=== PATIENT | male | born 1990 | race Caucasian/White ===

== ENCOUNTER → 2017-01-27 | Outpatient (CLI) | payer OTHER | LOC: FIMAGING 15:57 | PROVIDERS: ATTEND Family Medicine | DX: J40 Bronchitis, not specified as acute or chronic (principal); F17.200 Nicotine dependence, unspecified, uncomplicated ==

== ENCOUNTER 2018-11-25 13:30 | Emergency (ER) | payer MEDICAID, OTHER ==
[2018-11-25 13:42] VITALS: BP 133/77
[2018-11-25] MEDS ORDERED: FLUORESCEIN SODIUM 1 MG STRIP OP ONE (13:46)
[2018-11-25] MEDS ORDERED: PROPARACAINE 0.5% 15 ML OPHT DROP ONE (13:46)
--- NOTE | 2018-11-25 13:59 | EDPHY ---
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 This happened on Tuesday last week still present. Left eye upper medial. Says it does not affect his vision. REVIEW OF SYSTEMS: No fever, no discharge from the eye PAST MEDICAL HISTORY: Negative Social history: Here with mom General Appearance: Alert, no distress. Visual acuity: noted from nursing notes. 20/25 right, 20/50 left, 20/20 both Lids and Lashes: No edema, no stye, no erythema. Conjunctivae: Not injected, no exudate. Sclera: No subconjunctival hemorrhage, no icterus. Pupils: Equal and round, normally reactive. Corneas: The left examined with fluoroscein, upper left and medial 1 mm foreign body on the surface of the cornea and surrounding uptake seen with slitlamp.Negative Toshia test with fluoroscein. Anterior chamber: normal, no hyphema or hypopyon. External: No proptosis, no periorbital swelling or redness or tenderness. EOMI. Emergency Department course/MDM: Fluoroscein and Alcaine drops instilled which resolved his symptoms. An eye spud was used under direct vision with the ophthalmic microscope to remove the foreign body which I believe is likely metallic. Has retained rust ring. Gentamicin eyedrops and ophthalmology referral for Tuesday. Warned that this follow-up is mandatory. Smoking Status: Current every day smoker Constitutional: Initial Vital Signs Temperature (C) 36.5 C 11/25/18 13:40 Heart Rate 74 11/25/18 13:40 Respiratory Rate 16 11/25/18 13:40 Blood Pressure 133/77 H 11/25/18 13:40 O2 Sat (%) 95 11/25/18 13:40 O2 Delivery Mode Room Air Allergies/Adverse Reactions: No Known Allergies Allergy (Verified 10/08/13 16:47) Home Medications: Medication Instructions Recorded Gentamicin 0.3% [Gentak 0.3% Opht 1 drop Q4 #1 bottle 11/25/18 Drops] MDM/Departure - Depart Disposition: Home, Routine, Self-Care Clinical Impression: Foreign body in cornea, left eye, initial encounter Corneal abrasion, left Qualifiers: Encounter type: initial encounter Qualified Code(s): S05.02XA - Injury of conjunctiva and corneal abrasion without foreign body, left eye, initial encounter Condition: Good Instructions: Eye Foreign Body (ED) Additional Instructions: Follow-up on Tuesday with 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 Call at 8:30 a.m. And tell them your being referred from the emergency department with a rust ring from a corneal foreign body. Prescriptions: Gentamicin 0.3% [Gentak 0.3% Opht Drops] 1 drop Q4 #1 bottle Referrals: SUNG AGUIRRE [Primary Care Provider] - As per Instructions Seda Bruner MD [Medical Doctor] - 11/27/18
== END 2018-11-25 14:18 | disposition home or self-care (01) ==
PROC: 08C9XZZ Extirpation of Matter from Left Cornea, External Approach (ICD-10-PCS; principal; 2018-11-25)
DX: T15.02XA Foreign body in cornea, left eye, initial encounter (principal); X58.XXXA Exposure to other specified factors, initial encounter; Y92.69 Other specified industrial and construction area as the place of occurrence of the external cause; Y93.89 Activity, other specified